=== PATIENT | male | born 1995 | race Caucasian/White ===

== ENCOUNTER 2017-01-27 08:53 | Emergency (ER) | payer MEDICAID ==
[~2017-01-27] VITALS: Ht 170.2 cm; Wt 72.7 kg
[2017-01-27 08:55] VITALS: BP 138/92
== END 2017-01-27 10:47 | disposition home or self-care (01) ==
LOC: ED 08:53
DX: L02.31 Cutaneous abscess of buttock (principal); R03.0 Elevated blood-pressure reading, without diagnosis of hypertension
CPT/HCPCS: 90715; J2001

== ENCOUNTER 2017-01-29 09:23 | Emergency (ER) | payer MEDICAID ==
[~2017-01-29] VITALS: Ht 170.2 cm; Wt 73.5 kg
[2017-01-29 09:39] VITALS: BP 121/49
== END 2017-01-29 11:03 | disposition home or self-care (01) ==
LOC: ED 09:23
DX: Z48.01 Encounter for change or removal of surgical wound dressing (principal)